=== PATIENT | male | born 1950 | race Hispanic/Latino ===

== ENCOUNTER 2024-02-24 13:01 | Outpatient (CLI) | payer MEDICARE ==
[~2024-02-24 13:01] MED LIST: Iopamidol 370 76% 100 ML VIAL ONE
== END 2024-02-24 13:02 | disposition home or self-care (01) ==
LOC: BICCT 13:01
PROVIDERS: ATTEND Nurse Practitioner Family
DX: K42.9 Umbilical hernia without obstruction or gangrene (principal); N28.9 Disorder of kidney and ureter, unspecified
CPT/HCPCS: 74160; 82565; Q9967

== ENCOUNTER 2024-03-10 08:03 | Outpatient (CLI) | payer MEDICARE ==
[2024-03-10] MEDS ORDERED: Iopamidol 370 76% 100 ML VIAL ONE (12:08)
== END 2024-03-10 08:04 | disposition home or self-care (01) ==
LOC: CT 08:03
PROVIDERS: ATTEND Nurse Practitioner Family
DX: K42.9 Umbilical hernia without obstruction or gangrene (principal); N40.0 Benign prostatic hyperplasia without lower urinary tract symptoms; K80.20 Calculus of gallbladder without cholecystitis without obstruction; K57.30 Diverticulosis of large intestine without perforation or abscess without bleeding
CPT/HCPCS: 74177; 82565